=== PATIENT | female | born 1975 | race Caucasian/White ===

== ENCOUNTER → 2016-04-18 | Day surgery (SDC) | payer MEDICAID ==
[2015-12-08 09:14] VITALS: BMI 24.1
[~2016-04-18] MED LIST: BUPIVACAINE 0.25% 30 ML VIAL ONE; CEFAZOLIN 1 GM VIAL ONE; DEXAMETHASONE 4 MG/ML VIAL IV ONE; FENTANYL 100 MCG/2 ML VIAL IV PRN; FENTANYL 100 MCG/2 ML VIAL ONE; FENTANYL 250 MCG/5 ML VIAL IV ONE; GLYCOPYRROLATE 1 MG VIAL IM ONE; HYDROmorphone 1 MG INJECTION IV PRN; LABETALOL 20 MG/4 ML SYRINGE IV PRN; MEPERIDINE 25 MG/ML TUBEX IV PRN; MIDAZOLAM 2 MG/2 ML VIAL IV ONE; NEOSTIGMINE 1 MG/1 ML (1:1000) INJ 10 ML MDV IM ONE; ONDANSETRON HCL 4 MG ODT TAB PO PRN; ONDANSETRON HCL 4 MG/2 ML VIAL IV ONE; ONDANSETRON HCL 4 MG/2 ML VIAL IV PRN; OXYCODONE HCL 5 MG TABLET ONE; PROMETHAZINE 25 MG/ML VIAL IV PRN; PROPOFOL 200 MG/20 ML VIAL IV ONE; ROCURONIUM 50 MG/5 ML VIAL IV ONE; hydrALAZINE 20 MG/ML VIAL IV PRN
--- NOTE | 2016-04-18 09:51 | SC.ANESPOS ---
[id number], Hemodynamically Stable, Pain Control Adequate Phase I & II Recovery Complete: Yes Apparent Anesthesia Complication: No : N - Vital Signs Blood Pressure: 124/67 Pulse: 81 Resp Rate: 18 O2 Sat: 98 Temp: 97.4 F
--- NOTE | 2016-04-18 09:52 | HIM.ANES ---
Anesthesia Evaluation & Plan Diagnoses: ENCOUNTER FOR STERILIZATION (04/18/16) Consented Procedure: LAPAROSCOPIC TUBAL LIGATION WITH CAUTERY - Focused Review of Systems Now: No Cardiac History: No: Hx Cardiac Disorders HEENT: No: Other HEENT Problems Hx Other HEENT Surgery: ALL TEETH EXTRACTED UNDER GENERAL ANESTHESIA Respiratory: Yes: Hx Snoring (OCCASIONAL) Gastrointestinal: No: Hx Gastrointestinal Disorders Neurological/Musculoskeletal: Yes: Hx Back Pain (LUMBAR-4-5 YEARS AGO) No: Hx Neurological Disorders Psychological: Yes Hx Anxiety (RESOLVED), Yes Hx Depression (RESOLVED), No Hx Mental/Emotional Disorders, No Hx Bipolar Disorder Blood/Autoimmune: No: Hx Blood Transfusions, Hx Anemia, Hx AIDS, Hx Hepatitis (type), Hx Sickle Cell Disease Smoking Status: Never smoker Surgical History: No: Amputation, Back, Hip, Knee Other Surgical History: ALL TEETH EXTRACTED UNDER GENERAL ANESTHESIA - Focused Physical Exam NPO since: 04/17/162099 Mallampati: Class II Thyromental Distance: Greater than 3 Neck: Full Range of Motion Dental: Other (Many missing teeth) Cardiovascular/Chest: Normal Respiratory: Lungs clear Any problems with anesthesia, including nausea and vomiting?: No Any relatives with a history of Malignant Hyperthermia?: No Beta Arimda given (if appropriate): N/A Does the patient have a history of Motion Sickness-: No Other: Problem List Problem Status Onset Active labor at term Acute Spontaneous rupture of amniotic membranes Acute Term of male Acute Term Acute Vaginal delivery Acute PT/PTT/INR/ Urine Test Neg (NEGATIVE) 04/18/16 09:10 Allergies Allergy/AdvReac Type Severity Reaction Status Date / Time latex Allergy Hives* Verified 04/18/16 09:21 Home Medications Medication Instructions Recorded Last Taken Type No Home Medications 04/18/16 Unknown History Height and Weight Patient's height 5 ft 6 in Patient's weight 138 lb BMI 24.1 Vital Signs Temperature 97.4 F L 04/18/16 09:51 Pulse Rate 81 04/18/16 09:51 Respiratory Rate 18 04/18/16 09:51 Blood Pressure 124/67 04/18/16 09:51 Pulse Oxygen Saturation 98 04/18/16 09:51 - Anesthetic Plan Anesthesia Type: General ASA Class: 2 -: I have examined this patient and reviewed the medical record. The patient has been assessed prior to anesthesia. Risks and benefits of anesthesia and anesthetic technique options have been discussed and all questions answered. The patient accepts the risk and desires me to proceed with the planned anesthetic.
--- NOTE | 2016-04-18 11:43 | HIMOPRPT ---
DATE OF PROCEDURE: 04/18/16 PREOPERATIVE DIAGNOSIS: 1) Desires permanent sterility POSTOPERATIVE DIAGNOSIS: 1) Desires permanent sterility PROCEDURE: Laparoscopic bilateral tubal ligation SURGEON: Jessica Samuel DO. ANESTHESIA: General ESTIMATED BLOOD LOSS: Minimal. COMPLICATIONS: None. FINDINGS: Normal appearing tubes and ovaries PROCEDURE IN DETAIL: The patient was taken to the operating room, where general anesthesia was administered and found to be adequate. She was then prepped and draped in dorsal lithotomy position with the aid of Elayne stirrudavid and the bladder was then emptied with a Owens catheter. Attention was then turned to the abdomen where Marcaine was injected at the infraumbilical incision site. A 5 millimeter incision was made with the scalpel and a trocar was inserted under direct visualization. At this time, pneumoperitoneum was created. The above findings were then noted. The fallopian tube on the left-hand side was identified, following the tube all the way to the fimbria. The medial 1/3 portion of the tube was grasped with the Kleppinger and fulgurated in 3 consecutive spaces x2. The same was carried out on the right-hand side. The tubes were reinspected and good fulguration was noted bilaterally. The procedure was then deemed to be over. The pneumoperitoneum was then released and the port was removed. The skin incision was then reapproximated using 3-0 Monocryl in a deep then subcuticular fashion. Dermabond was then applied. The sponge, lap, needle, and instrument counts were correct x2 and the patient was taken to the recovery room in stable condition.
[2016-04-18 14:33] VITALS: BP 124/67; PULSE 81; TEMP 97.4
== END ==
LOC: SDC 08:59
PROVIDERS: ATTEND Obstetrics & Gynecology
PROC: 0U574ZZ Destruction of Bilateral Fallopian Tubes, Percutaneous Endoscopic Approach (ICD-10-PCS; principal; 2016-04-18 10:10)
DX: Z30.2 Encounter for sterilization (principal); F17.220 Nicotine dependence, chewing tobacco, uncomplicated
CPT/HCPCS: 58670; 81025; J0690; J1100; J2250; J2405; J2710; J3010; J3490; S0020